=== PATIENT | male | born 2000 | race Caucasian/White ===

== ENCOUNTER 2022-10-08 16:01 | Emergency (ER) | payer OTHER, SELFPAY ==
[2022-10-08 16:13] VITALS: BP 158/88; PULSE 91; RESP 18; TEMP 36.9; O2SAT 99; BMI 32.6
--- NOTE | 2022-10-08 16:23 | CRLHL7_ITS ---
For Patients: As a result of the Century Cures Act, medical imaging exams and procedure reports are released immediately into your electronic medical record. You may view this report before your referring provider. If you have questions, please contact your health care provider. INDICATION: Right lower quadrant pain TECHNIQUE: Axial images were obtained from the diaphragm to the pubic symphysis. Reformats were obtained in the coronal and sagittal plane. IV Contrast: 111 cc Isovue 370 Oral Contrast: None COMPARISON: None. FINDINGS: Lower chest: Unremarkable. Liver: Unremarkable. Normal in size and attenuation. No masses. Gallbladder and bile ducts: Unremarkable. No stones or inflammation. No biliary dilatation. Spleen: Unremarkable. Normal in size without mass. Pancreas: Unremarkable. No mass or inflammation. Adrenal glands: Unremarkable. No nodules. Kidneys: Unremarkable. No masses, stones, or hydronephrosis. Vasculature: Unremarkable. GI tract: No dilated loops of large or small intestine. Normal appendix. Focal inflammation inferior to the sigmoid colon surrounding a lobule of fat with some colonic wall thickening (series 2, image 137; series 4, image 58). No diverticula within this region. Trace free fluid. Pelvis: Unremarkable. Bones: Unremarkable for age. IMPRESSION: 1. Focal inflammation surrounding a lobule of fat in the pericolonic tissues in the deep pelvis. Appearance is consistent with epiploic appendagitis. 2. Remainder of the abdomen and pelvis is within normal limits. Normal appendix. Please note that all CT scans at this facility use dose modulation, iterative reconstruction, and/or weight-based dosing when appropriate to reduce radiation dose to as low as reasonably achievable. Dictated by Td Ratliff MD @ 10/08/2022 5:48:23 PM (Electronically Signed)
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
[2022-10-08 16:44] LABS: Basophils Absolute Auto 0.01 K/uL (0.00-0.30); Basophils Percent Auto 0.1 % (0.0-3.0); Eosinophils Percent Auto 2.1 % (0.0-7.0); Hematocrit 46.8 % (37.0-53.0); Hemoglobin* 16.3 gm/dL (13.5-17.5); Immature Granulocytes Abs Auto 0.02 K/uL (0.00-0.30); Immature Granulocytes Pct Auto 0.2 %; Lymphocytes Absolute Auto 3.37 K/uL (0.90-2.90); Lymphocytes Percent Auto 35.4 % (20-44); Mean Corpuscular HGB Conc 35 gm/dL (32-36); Mean Corpuscular Hemoglobin 31 pg (26-34); Mean Corpuscular Volume 89 fL (80-100); Monocytes Percent Auto 7.4 % (0.0-11.0); Neutrophils Absolute Auto 5.22 K/uL (1.7-7.0); Neutrophils Percent Auto 54.8 % (42.0-72.0); Platelet Count* 309 K/uL (140-440); RDW Coefficient of Variation % 12.1 % (11.5-15.5); Red Blood Count 5.29 m/uL (4.30-5.90); White Blood Count* 9.52 K/uL (4.50-11.00)
[2022-10-08 16:46] LABS: Appearance Urine Clear (Clear); Bilirubin Urine Negative (Negative); Blood Urine Negative (Negative); Color Urine Yellow (Yellow); Glucose Urine Negative (Negative); Ketones Urine Negative (Negative); Leukocyte Esterase Urine Negative (Negative); Nitrite Urine Negative (Negative); Protein Urine Negative (Negative); Urobilinogen Urine 0.2 (0.2-1.0)
[2022-10-08 16:49] LABS: Slide Review Reflex No
[2022-10-08 17:02] LABS: Chloride* 108 mmol/L (96-114); Potassium* 3.8 mmol/L (3.6-5.1); Sodium* 140 mmol/L (135-149)
[2022-10-08 17:05] LABS: RBC Urine 0-2 (0-2); WBC Urine 0-2 (0-5)
[2022-10-08 17:05] LABS: Blood Urea Nitrogen* 10 mg/dL (5-24); Calcium* 9.2 mg/dL (8.4-10.6); Carbon Dioxide* 23 mmol/L (20-32); Creatinine* 1.1 mg/dL (0.5-1.5); Est. Creatinine Clearance* 110.61; Estimated Glomerular Filt Rate 99 ml/min; Glucose* 93 mg/dL (60-115)
[2022-10-08 18:08] VITALS: BP 127/67
== END 2022-10-08 18:13 | disposition home or self-care (01) ==
PROVIDERS: Emergency Provider Family Medicine; PCP Family Medicine
DX: K38.8 Other specified diseases of appendix (principal)
CPT/HCPCS: 36415; 74177; 80048; 81001; 85025; 99283; 99284; 99285; Q9967